=== PATIENT | male | born 1990 | race Caucasian/White ===

== ENCOUNTER 2018-08-27 01:50 | Emergency (ER) | payer OTHER ==
[~2018-08-27] VITALS: Ht 175.3 cm; Wt 81.6 kg
[2018-08-27 01:50] VITALS: BP_SYST 122
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
--- NOTE | 2018-08-27 01:57 | NUR ---
ER at bedside examining patient.
--- NOTE | 2018-08-27 02:12 | NUR ---
Written and verbal consent obtained from patient for blood alcohol, name and verified by patient. Disinfected patient's skin with Povidone-Iodine that did not contain alcohol or other volatile organic compound. Collected the blood from the subject named by venipuncture, in the presence of Officer Darvin. Used a sterile, dry hypodermic needle and dry vacuum blood collection. The dry vacuum blood collection was supplied by the officer named above. Withdrew a specimens of blood from Right AC of the subject named above. Inverted the blood tubes several times to ensure that the preservative and anticoagulant were thoroughly mixed in the blood specimens. I initialed the blood tubes label for identification. The labeled blood tubes were handed directly to the Officer named above. The blood tube stoppers remained in place while I had possession of the blood tubes. The Officer placed tubes into envelope and sealed it in my presence. Envelope initialed by myself and Officer named above. Patient tolerated well, bandage applied, and bleeding controlled.
[2018-08-27] MEDS: IBUPROFEN 600 MG TABLET PO ONE (02:19)
--- NOTE | 2018-08-27 03:00 | NUR ---
Patient resting quietly in no acute distress, awaiting CT results and dispo.
[2018-08-27 03:15] VITALS: BP_SYST 120
--- NOTE | 2018-08-27 03:15 | NUR ---
Patient given written and verbal discharge instructions and verbalizes understanding. ER MD discussed with patient the results and treatment provided. Patient in stable condition. ID arm band removed. No RX given. Patient educated on pain management and to follow up with PMD. Pain Scale 0. Opportunity for questions provided and answered. Patient left ER in no acute distress, in handcuffs in custody of [facility] Officer Darvin. Patient able to ambulate without difficulty with slow, steady gait. No adverse reaction noted to medication.
== END 2018-08-27 03:15 ==
LOC: SED 01:50
DX: S16.1XXA Strain of muscle, fascia and tendon at neck level, initial encounter (principal); V43.53XA Car driver injured in collision with pick-up truck in traffic accident, initial encounter; Y93.89 Activity, other specified; Y92.410 Unspecified street and highway as the place of occurrence of the external cause; Y99.8 Other external cause status
CPT/HCPCS: 72125-TC; 99284